=== PATIENT | female | born 1940 | race Caucasian/White ===

== ENCOUNTER → 2017-01-05 | Outpatient (CLI) | payer MEDICARE, OTHER | LOC: MC.RAD 09:34 | DX: Z12.31 Encounter for screening mammogram for malignant neoplasm of breast (principal); Z85.3 Personal history of malignant neoplasm of breast; Z90.13 Acquired absence of bilateral breasts and nipples; Z92.3 Personal history of irradiation ==

== ENCOUNTER 2017-09-28 06:49 | Day surgery (SDC) | payer MEDICARE, OTHER ==
[~2017-09-28] VITALS: Ht 160 cm; Wt 70.8 kg
[2017-09-28] VITALS (13 sets, daily range): BP systolic 120–149; BP diastolic 52–90; PULSE 59–82; TEMP 97.4
[2017-09-28 07:38] LABS: MEAN CELL VOLUME 97 fl (80.0-100.0); MEAN CORPUSCULAR HGB CONC 34 g/dl (33.0-37.0); PLATELET COUNT 197 K/mm3 (130-400); RED BLOOD COUNT 3.57 M/mm3 (4.10-5.30); REDCELL DISTRIBUTION WIDTH-CV 12.7 % (11.5-14.5)
[2017-09-28] MEDS ORDERED: TYLENOL 500MG500 MG PO (07:39)
[2017-09-28] MEDS ORDERED: ASPIRIN 81M81 MG/TA2 PO (07:39)
[2017-09-28] MEDS ORDERED: LIPITOR 80MG80 MG PO (07:40)
[2017-09-28 07:42] LABS: HEMATOCRIT 34.5 % (37.0-47.0); HEMOGLOBIN 11.7 g/dl (12.5-16.0); MEAN CORPUSCULAR HEMOGLOBIN 33 pg (27.0-31.0)
[2017-09-28 07:48] LABS: CREATININE, serum 0.64 mg/dL (0.52-1.25)
[2017-09-28 07:49] LABS: INR 1.1 (0.8-3.0); PROTHROMBIN TIME 12.6 SECONDS (9.7-12.8)
[2017-09-28] MEDS ORDERED: CALCIUM 600MG+D1 TAB PO (07:49)
[2017-09-28] MEDS ORDERED: COREG 25MG25 MG/TAB PO (07:56)
[2017-09-28] MEDS ORDERED: CENTRUM1 TA1 PO (07:59)
[2017-09-28] MEDS ORDERED: BENADRYL25 M2 PO (08:01)
[2017-09-28] MEDS ORDERED: LEVSIN0.125 M1 PO (08:02)
[2017-09-28] MEDS ORDERED: PRINIVIL2.5 MG PO (08:02)
[2017-09-28] MEDS ORDERED: MAG-OX 400400 MG/TAB PO (08:03)
[2017-09-28] MEDS ORDERED: PRILOSEC 20MG20 MG PO (08:03)
[2017-09-28] MEDS ORDERED: OSTEO-BI-FLEX 21 TAB PO (08:06)
[2017-09-28] MEDS ORDERED: VITAMIN C500 MG PO (08:07)
[2017-09-28] MEDS ORDERED: VITAMIN B COMPL1 SGL PO (08:07)
[2017-09-28] MEDS ORDERED: VITAMINE200 PO (08:08)
[2017-09-28] MEDS ORDERED: VITAMIN D31000 I1 PO (08:08)
== END 2017-09-28 15:06 | disposition home or self-care (01) ==
LOC: COL.CAR 06:49
PROVIDERS: Internal Medicine Cardiovascular Disease
DX: I25.10 Atherosclerotic heart disease of native coronary artery without angina pectoris (principal); F90.9 Attention-deficit hyperactivity disorder, unspecified type; I10 Essential (primary) hypertension; I42.9 Cardiomyopathy, unspecified; E78.2 Mixed hyperlipidemia; I34.0 Nonrheumatic mitral (valve) insufficiency; Z90.710 Acquired absence of both cervix and uterus; Z79.82 Long term (current) use of aspirin; Z82.49 Family history of ischemic heart disease and other diseases of the circulatory system; Z95.2 Presence of prosthetic heart valve
CPT/HCPCS: J2250; J3010; Q9967

== ENCOUNTER → 2018-01-06 | Outpatient (CLI) | payer MEDICARE, OTHER ==
[~2018-01-06] MED LIST: ASPIRIN 81M81 MG/TA2 PO; BENADRYL25 M2 PO; CALCIUM 600MG+D1 TAB PO; CENTRUM1 TA1 PO; COREG 25MG25 MG/TAB PO; LEVSIN0.125 M1 PO; LIPITOR 80MG80 MG PO; MAG-OX 400400 MG/TAB PO; OSTEO-BI-FLEX 21 TAB PO; PRILOSEC 20MG20 MG PO; PRINIVIL2.5 MG PO; TYLENOL 500MG500 MG PO; VITAMIN B COMPL1 SGL PO; VITAMIN C500 MG PO; VITAMIN D31000 I1 PO; VITAMINE200 PO
== END ==
LOC: MC.RAD 09:15
DX: Z12.31 Encounter for screening mammogram for malignant neoplasm of breast (principal); Z85.3 Personal history of malignant neoplasm of breast; Z98.890 Other specified postprocedural states; Z92.3 Personal history of irradiation

== ENCOUNTER → 2019-01-08 | Outpatient (CLI) | payer MEDICARE, OTHER ==
[~2019-01-08] MED LIST changes: +COZAAR 25MG25 MG/TAB PO; +DITROPAN XL10 MG PO; +PERIDEX (CHLOR480 ML MM
== END ==
LOC: MC.RAD 09:28
DX: Z12.31 Encounter for screening mammogram for malignant neoplasm of breast (principal); Z85.3 Personal history of malignant neoplasm of breast; Z92.3 Personal history of irradiation; Z98.890 Other specified postprocedural states

== ENCOUNTER 2019-04-25 15:52 | Outpatient (RCR) | payer MEDICARE, OTHER | END 2019-04-26 | disposition home or self-care (01) | LOC: COL.CR | DX: Z48.812 Encounter for surgical aftercare following surgery on the circulatory system (principal); Z95.2 Presence of prosthetic heart valve ==

== ENCOUNTER 2019-05-09 12:19 | Outpatient (RCR) | payer MEDICARE, OTHER | END 2019-05-09 12:45 | disposition home or self-care (01) | LOC: COL.CR 12:19 | DX: Z48.812 Encounter for surgical aftercare following surgery on the circulatory system (principal); Z95.2 Presence of prosthetic heart valve; I25.10 Atherosclerotic heart disease of native coronary artery without angina pectoris; I50.23 Acute on chronic systolic (congestive) heart failure ==

== ENCOUNTER 2019-07-25 08:31 | Observation (INO) | payer MEDICARE, OTHER ==
[2019-07-25] VITALS (12 sets, daily range): BP systolic 94–171; BP diastolic 50–109; PULSE 60–120; TEMP 97.5–98.6
[~2019-07-25] VITALS: Ht 160.1 cm; Wt 67.6 kg
[2019-07-25 09:04] LABS: HEMOGLOBIN 11.7 g/dl (12.5-16.0); MEAN CELL VOLUME 100 fl (80.0-100.0); MEAN CORPUSCULAR HEMOGLOBIN 33 pg (27.0-31.0); MEAN CORPUSCULAR HGB CONC 33 g/dl (33.0-37.0); MEAN PLATELET VOLUME 10.4 fl (7.4-10.4); PLATELET COUNT 148 K/mm3 (130-400); RED BLOOD COUNT 3.58 M/mm3 (4.10-5.30); REDCELL DISTRIBUTION WIDTH-CV 13.2 % (11.5-14.5)
[2019-07-25 09:07] LABS: HEMATOCRIT 35.8 % (37.0-47.0)
[2019-07-25 09:14] LABS: CALCIUM 9.2 mg/dL (8.4-10.2); CREATININE, serum 0.5 (0.52-1.25); POTASSIUM 4.1 mmol/L (3.4-5.0)
[2019-07-25 09:15] LABS: INR 1.1 (0.8-3.0); PROTHROMBIN TIME 12.5 SECONDS (9.7-12.8)
--- NOTE | 2019-07-25 10:22 | NUR ---
SEE MERGE DOCUMENTATION FOR MEDICATION ADMINISTRATION TIMES AND INTRA/POST PROCEDURE SEDATION ASSESSMENTS. SHARED DECISION MAKING AND NCD SCREENING TOOL COMPLETED, SIGNED, AND ON CHART.
--- NOTE | 2019-07-25 11:30 | NUR ---
Pt arrived to floor awake and alert at this time. States she is in no pain and is just hungry. incision site looks good no drainage, redness or edema at this time. Pt sipped on water upon arrival, no issues swallowing, will have food tray delivered for lunch. Family is currently at the bedside. No further needs were expressed at this time. Calll light is in place.
--- NOTE | 2019-07-25 16:43 | NUR ---
in radiology called to inform me that on her xray there was a visible small Left apical punemothorax, less than 5%. I called Dr. Cruz to inform him and he said not to worry about it she has another xray in the am.
--- NOTE | 2019-07-25 19:05 | NUR ---
Received report from Amira. Seen patient awake, lying on bed. With right arm sling. Left upper chest incision covered with gauze and tape. Patient denies any pain. With INT on left forearm.
[2019-07-26] VITALS (11 sets, daily range): BP systolic 103–141; BP diastolic 46–79; PULSE 68–93; TEMP 97.9–98.6
--- NOTE | 2019-07-26 05:47 | NUR ---
Patient had an uneventful night. Complained of pain this morning with pain score of 7/10. Patient was able to ambulate to restroom with assistance and using her cane. Will endorse to day shift nurse.
--- NOTE | 2019-07-26 08:08 | NUR ---
SEE MERGE DOCUMENTATION FOR MEDICATION ADMINISTRATION TIMES AND INTRA/POST PROCEDURE SEDATION ASSESSMENTS.
--- NOTE | 2019-07-26 16:45 | NUR ---
RACHEL met with the patient and the patient's daughter, Lexy to complete initial intake. The patient lives in [place] with her and extended family. The patient has a cane a walker that she uses as needed and reports independence with ADLs. The patient's PCP is Dr. Sands and the patient receives medications from [facility]. The patient does not have advanced directives in the EMR but reports they are completed. The patient's son-in-law, Catracho Murillo is a civil lawyer and has the paperwork. The patient plans to return home at discharge. There are no additional needs at this time.
--- NOTE | 2019-07-26 18:45 | NUR ---
Received report from Geena. Seen patient awake, sitting on bed. She's taking her dinner. Patient denies any pain. With left arm sling and INT on left AC. On O2 at 2lpm via NC.
[2019-07-27] VITALS (8 sets, daily range): BP systolic 89–127; BP diastolic 50–67; PULSE 63–93; TEMP 97.9–99.7
[2019-07-27 06:20] LABS: BASO % 0.6 % (0.0-2.0); EOS # 0.1 (0.0-0.7); GRAN # 4.1 (1.4-6.5); GRAN % 57.7 % (42.2-75.2); HEMOGLOBIN 11.4 g/dl (12.5-16.0); LYMPH # 1.9 (1.2-3.4); LYMPH % 26.8 % (20.0-51.0); MEAN CELL VOLUME 99 fl (80.0-100.0); MEAN CORPUSCULAR HEMOGLOBIN 33 pg (27.0-31.0); MEAN CORPUSCULAR HGB CONC 33 g/dl (33.0-37.0); MEAN PLATELET VOLUME 11.5 fl (7.4-10.4); MONO # 0.9 (0.1-0.6); MONO % 12.8 % (1.7-9.3); PLATELET COUNT 94 K/mm3 (130-400); RED BLOOD COUNT 3.45 M/mm3 (4.10-5.30); REDCELL DISTRIBUTION WIDTH-CV 13.2 % (11.5-14.5)
[2019-07-27 06:22] LABS: HEMATOCRIT 34.3 % (37.0-47.0)
[2019-07-27 06:25] LABS: CALCIUM 9.2 mg/dL (8.4-10.2); CREATININE, serum 0.5 (0.52-1.25); POTASSIUM 3.8 mmol/L (3.4-5.0)
--- NOTE | 2019-07-27 06:30 | NUR ---
Patient had an uneventful night. Complained of pain last night which was relieved with Tylenol. Will endorse to day shift nurse.
--- NOTE | 2019-07-27 10:03 | NUR ---
Initial visit; Patient thanked Bituminous Distributor Operator for looking in on her and offering Spiritual Care.
--- NOTE | 2019-07-27 19:27 | NUR ---
1814: SEE FLOW SHEET FOR DOCUMENTED VITAL SIGNS WITH HYPOTENSIONS. PATIENT SITTING UP IN BED VISITING WITH FAMILY. DENIES BEING DIZZY OR LIGHTED HEADED. A/O X 4. NO CHEST PAINOR SHORTNESS OF BREATHE. CALL TO CRAFT DEMONSTRATOR HOSPITALIST. HE IS ONCALL FOR CARDIOLOGY @ THIS TIME. REVIEWED PATIENT WITH PROVIDER. ORDERS RECEIVED FOR 250ML NS BOLOUS X 1. CALL WITH ANY CHEST PAIN, SHORTNESS OF BREATHE OR IF HYPOTENSION CONTINUES AFTER FLUID BOLUS. REPORT GIVEN TO SUPERVISOR HAND SILVERING MARY HENDERSON. DISCUSSED VITAL SIGNS AND PROVIDERS ORDERS. SEE EMAR FOR FLUID BOLUS INITIATION AND COREG NOT ADMINISTERED ORDERED BY HOSPITALIST. PATIENT NOTIFIED OF PLAN OF CARE AND REASONS. AGREES WITH PLAN OF CARE AND HAS NO QUESTIONS OR CONCERNS AFTER DISCUSSION.
--- NOTE | 2019-07-27 19:43 | NUR ---
SEE FLOW SHEET FOR BP OBTAINED POST COMPLETION OF 250ML NS BOLUS. PATIENT CONTINUES A/O X4 WITH NO COMPLAINTS OF BEING DIZZY/LIGHT HEADED. NO SOB, CHEST PAIN. CALL TO HOSPITALIST. COMMUNICATION TO OBTAIN FVS Q4H ROUTINE AND NOTIFY WTH ANY NEW COMPLAINTS.
[2019-07-28 00:21] VITALS: BP 107/45; PULSE 61; TEMP 97.9
[2019-07-28 04:46] VITALS: BP 108/58; PULSE 76; TEMP 97.8
[2019-07-28 07:45] VITALS: BP 110/53; PULSE 78; TEMP 97.7
[2019-07-28] MEDS ORDERED: CEPHALEXIN500 M1 PO (11:46)
[2019-07-28 11:55] VITALS: BP 101/55; PULSE 86; TEMP 98.3
--- NOTE | 2019-07-28 15:27 | NUR ---
PATIENT DC TO HOME ACCOMPANIED BY GRANDDAUGHTER VIA PRIVATE VEHICLE @ 1400. PRINTED DC INSTRUCTIONS REVIEWED WITH PATIENT. ALL QUESTION ANSWERED AFTER REVIEW. LEFT UNIT IN WC ACCOMPANIED BY THIS NURSE.
== END 2019-07-28 14:00 | disposition home or self-care (01) ==
LOC: COL.CAR 08:31 → MEDICAL 16:04 → COL.CAR 07-26 13:34 → MEDICAL 07-26 13:34
PROVIDERS: Nurse Practitioner; ADMIT Internal Medicine Cardiovascular Disease
DX: I42.0 Dilated cardiomyopathy (principal); J93.83 Other pneumothorax; I10 Essential (primary) hypertension; I25.10 Atherosclerotic heart disease of native coronary artery without angina pectoris; F90.9 Attention-deficit hyperactivity disorder, unspecified type; K56.609 Unspecified intestinal obstruction, unspecified as to partial versus complete obstruction; I34.0 Nonrheumatic mitral (valve) insufficiency; I27.20 Pulmonary hypertension, unspecified; E78.2 Mixed hyperlipidemia; Z90.710 Acquired absence of both cervix and uterus; Z95.2 Presence of prosthetic heart valve; Z79.82 Long term (current) use of aspirin; Z91.048 Other nonmedicinal substance allergy status; Z91.040 Latex allergy status; Z88.1 Allergy status to other antibiotic agents
CPT/HCPCS: OP; C1769; C1777; C1882; C1894; C1898; C1900; G0378; J0690; J2250; J3010; J7030; J7050; Q9967

== ENCOUNTER → 2020-01-11 | Outpatient (CLI) | payer MEDICARE, OTHER ==
[~2020-01-11] MED LIST changes: +CEPHALEXIN500 M1 PO
== END ==
LOC: MC.RAD 10:23
DX: Z12.31 Encounter for screening mammogram for malignant neoplasm of breast (principal); Z98.890 Other specified postprocedural states; Z98.82 Breast implant status; Z85.3 Personal history of malignant neoplasm of breast; Z92.3 Personal history of irradiation; Z95.0 Presence of cardiac pacemaker

== ENCOUNTER → 2021-01-14 | Outpatient (CLI) | payer MEDICARE, OTHER | LOC: MC.RAD 14:14 | DX: Z12.31 Encounter for screening mammogram for malignant neoplasm of breast (principal); Z98.890 Other specified postprocedural states ==

== ENCOUNTER 2021-07-02 16:55 | Inpatient (IN) | payer MEDICARE, OTHER ==
[2021-07-06 08:44] VITALS: BP 110/60; PULSE 91; TEMP 99.8
[2021-07-06 09:51] LABS: BASO # 0.1 K/mm3 (0.0-0.2); BASO % 1.2 % (0.0-2.0); EOS # 0.1 K/mm3 (0.0-0.7); EOS % 2.1 % (0.0-4.0); GRAN # 3.1 K/mm3 (1.4-6.5); GRAN % 60.2 % (42.2-75.2); HEMOGLOBIN 11.7 g/dl (12.5-16.0); LYMPH # 1.4 K/mm3 (1.2-3.4); LYMPH % 27.5 % (20.0-51.0); MEAN CELL VOLUME 98 fl (80.0-100.0); MEAN CORPUSCULAR HEMOGLOBIN 32 pg (27-31); MEAN CORPUSCULAR HGB CONC 33 g/dl (33.0-37.0); MEAN PLATELET VOLUME 10.7 fl (7.4-10.4); MONO # 0.5 K/mm3 (0.1-0.6); MONO % 8.8 % (1.7-9.3); PLATELET COUNT 157 K/mm3 (130-400); RED BLOOD COUNT 3.64 M/mm3 (4.10-5.30); REDCELL DISTRIBUTION WIDTH-CV 13.2 % (11.5-14.5)
[2021-07-06 09:55] LABS: HEMATOCRIT 35.6 % (37.0-47.0)
[2021-07-06 10:07] LABS: ALBUMIN 3.7 gm/dL (3.4-4.8); BILIRUBIN,TOTAL 0.7 mg/dL (0.2-1.2); CREATININE, serum 0.72 mg/dL (0.57-1.11); MAGNESIUM 1.6 mg/dL (1.6-2.6); POTASSIUM 3.7 mmol/L (3.5-4.5); TOTAL PROTEIN 6.7 gm/dL (6.2-8.1)
[2021-07-06 10:13] LABS: INR 1.8 (0.8-3.0); PROTHROMBIN TIME 19.7 SECONDS (9.7-12.8)
[2021-07-06] MEDS ORDERED: ELIQUIS 5MG PO (10:22)
[2021-07-06 11:51] VITALS: BP 117/57; PULSE 79; TEMP 98.4
[2021-07-06 17:28] VITALS: BP 128/67; PULSE 64; TEMP 98.1
--- NOTE | 2021-07-06 18:44 | NUR ---
PT PLEASANT, AOX4, DENIES PAIN, UNEVENTFUL SHIFT, NO C/O PAIN, AMBULATORY WITH PT OWN WALKER IN ROOM, TELE ON PT, PT CALL LIGHT WITHIN REACH, NO OTHER NEEDS
[2021-07-06 21:14] VITALS: BP 119/50; PULSE 64; TEMP 97.7
[2021-07-07] VITALS (7 sets, daily range): BP systolic 112–134; BP diastolic 61–74; PULSE 7–81; TEMP 97.8–99
[2021-07-07 06:36] LABS: BASO # 0.1 K/mm3 (0.0-0.2); BASO % 1.1 % (0.0-2.0); EOS # 0.1 K/mm3 (0.0-0.7); EOS % 2.4 % (0.0-4.0); GRAN # 2.2 K/mm3 (1.4-6.5); GRAN % 40.9 % (42.2-75.2); HEMOGLOBIN 11.6 g/dl (12.5-16.0); LYMPH # 2.4 K/mm3 (1.2-3.4); LYMPH % 44.9 % (20.0-51.0); MEAN CELL VOLUME 98 fl (80.0-100.0); MEAN CORPUSCULAR HEMOGLOBIN 33 pg (27-31); MEAN CORPUSCULAR HGB CONC 33 g/dl (33.0-37.0); MEAN PLATELET VOLUME 11.3 fl (7.4-10.4); MONO # 0.6 K/mm3 (0.1-0.6); MONO % 10.5 % (1.7-9.3); PLATELET COUNT 154 K/mm3 (130-400); RED BLOOD COUNT 3.56 M/mm3 (4.10-5.30); REDCELL DISTRIBUTION WIDTH-CV 13.2 % (11.5-14.5)
[2021-07-07 06:47] LABS: HEMATOCRIT 34.7 % (37.0-47.0)
[2021-07-07 06:56] LABS: CALCIUM 9.1 mg/dL (8.4-10.2); CREATININE, serum 0.66 mg/dL (0.57-1.11); MAGNESIUM 1.6 mg/dL (1.6-2.6); POTASSIUM 3.5 mmol/L (3.5-4.5)
[2021-07-07 07:06] LABS: INR 1.8 (0.8-3.0); PROTHROMBIN TIME 19.7 SECONDS (9.7-12.8)
--- NOTE | 2021-07-07 09:41 | NUR ---
Initial visit; Patient thanked Heat And Frost Insulator Helper for looking in on her and offering comfort, encouragement and prayer.
--- NOTE | 2021-07-07 10:00 | NUR ---
PT PLEASANT AXO4, MEDICATIONS GIVEN, ASSSESSMENT PERFORMED, MEALS ORDERED BY PT DAUGHTER, NO OTHER NEEDS
--- NOTE | 2021-07-07 10:18 | NUR ---
demolition worker met with patient to discuss discharge plan. Patient reports that she lives at home with her daughter Frnaces ([phone]), son in law, and three grandchildren. Patient is fully independent with her ADL's and utilizes both a cane and a walker to assist with ambulation. Patient reports to no oxygen needs at home. PCP is Dr. Maguire and she utilizes [facility] for medications. Patient reports that she does have a DPOA-HC established listing her son in law Tad (Frances's )
--- NOTE | 2021-07-07 17:19 | NUR ---
UNEVENTFUL SHIFT, PT INDEPENDENT IN ROOM, AOX4, DENIES PAIN, NO OTHER NEEDS
--- NOTE | 2021-07-07 23:31 | NUR ---
Patient assessed around 1999. Alert and oriented, and able to make needs known. Denies pain and discomfort. Peripheral INT to left AC. Denies SOB and dyspnea. LS CTA. HRR. Telemetry in place. Continues on Sotalol per orders. BSAx4. Abdomen soft and non-tender. Voices no questions, needs, or concerns at this time. In bed with call light within reach.
[2021-07-08 00:13] VITALS: BP 106/84; PULSE 67; TEMP 97.3
[2021-07-08 04:16] VITALS: BP 134/61; PULSE 62; TEMP 97.2
--- NOTE | 2021-07-08 05:35 | NUR ---
Patient has denied having pain and discomfort this shift. Voices no questions, needs, or concerns at this time. In bed with call light within reach.
[2021-07-08 06:36] LABS: BASO # 0.1 K/mm3 (0.0-0.2); BASO % 1.4 % (0.0-2.0); EOS # 0.1 K/mm3 (0.0-0.7); EOS % 2.8 % (0.0-4.0); GRAN # 1.7 K/mm3 (1.4-6.5); GRAN % 33.6 % (42.2-75.2); HEMOGLOBIN 11.4 g/dl (12.5-16.0); LYMPH # 2.5 K/mm3 (1.2-3.4); LYMPH % 50.2 % (20.0-51.0); MEAN CELL VOLUME 98 fl (80.0-100.0); MEAN CORPUSCULAR HEMOGLOBIN 33 pg (27-31); MEAN CORPUSCULAR HGB CONC 34 g/dl (33.0-37.0); MEAN PLATELET VOLUME 11.5 fl (7.4-10.4); MONO # 0.6 K/mm3 (0.1-0.6); MONO % 11.8 % (1.7-9.3); PLATELET COUNT 156 K/mm3 (130-400); RED BLOOD COUNT 3.48 M/mm3 (4.10-5.30); REDCELL DISTRIBUTION WIDTH-CV 13.1 % (11.5-14.5)
[2021-07-08 06:47] LABS: INR 1.6 (0.8-3.0); PROTHROMBIN TIME 18.3 SECONDS (9.7-12.8)
[2021-07-08 06:51] LABS: CALCIUM 8.9 mg/dL (8.4-10.2); CREATININE, serum 0.69 mg/dL (0.57-1.11); MAGNESIUM 1.7 mg/dL (1.6-2.6); POTASSIUM 3.5 mmol/L (3.5-4.5)
[2021-07-08 08:50] VITALS: BP 126/65; PULSE 64; TEMP 98
[2021-07-08] MEDS ORDERED: BETAPACE 80MG80 MG PO (09:43)
--- NOTE | 2021-07-08 11:27 | NUR ---
PT MET CRITERIA FOR DISCHARGE, VSS. IV REMOVED WITH NO COMPLICATIONS, CATHETER INTACT. DISCHARGE INSTRUCTIONS REVIEWED, PT VERBALIZED UNDERSTANDING. PT AWARE OF F/U APPT AND OF PRESCRIPTIONS TO PARACHUTE ACCESSORIES ATTACHER. PT DC TO HOME VIA AMBULATORY ACCOMPANIED BY PRESSER AND SHAPER KNITTED GOODS.
== END 2021-07-08 11:33 | disposition home or self-care (01) | DRG 310 ==
LOC: MEDICAL 07-06 08:10 → INPTSU 07-06 08:10 → MEDICAL 07-06 08:14
PROVIDERS: ADMIT Internal Medicine Cardiovascular Disease
DX: I48.0 Paroxysmal atrial fibrillation (principal); I42.9 Cardiomyopathy, unspecified; I10 Essential (primary) hypertension; E78.5 Hyperlipidemia, unspecified; I34.0 Nonrheumatic mitral (valve) insufficiency; I27.20 Pulmonary hypertension, unspecified; Z79.82 Long term (current) use of aspirin; Z23 Encounter for immunization

== ENCOUNTER → 2021-11-26 | Outpatient (CLI) | payer MEDICARE, OTHER ==
[~2021-11-26] MED LIST changes: +BETAPACE 80MG80 MG PO; +ELIQUIS 5MG PO
== END ==
LOC: COL.RAD 07:50
DX: M17.11 Unilateral primary osteoarthritis, right knee (principal); M11.261 Other chondrocalcinosis, right knee

== ENCOUNTER → 2021-12-02 | Outpatient (CLI) | payer MEDICARE, OTHER | LOC: ZCOL.LAB 11:47 | DX: M81.0 Age-related osteoporosis without current pathological fracture (principal) ==

== ENCOUNTER → 2022-01-15 | Outpatient (CLI) | payer MEDICARE, OTHER | LOC: MC.RAD 12:57 | DX: Z12.31 Encounter for screening mammogram for malignant neoplasm of breast (principal); Z98.890 Other specified postprocedural states ==

== ENCOUNTER → 2022-09-29 | Outpatient (REF) | payer MEDICARE, OTHER ==
[2022-09-29 16:09] LABS: CALCIUM 9.3 mg/dL (8.4-10.2); CREATININE, serum 0.73 mg/dL (0.57-1.11); POTASSIUM 4.5 mmol/L (3.5-4.5)
== END ==
LOC: ZCOL.LAB 13:29
PROVIDERS: Internal Medicine
DX: I10 Essential (primary) hypertension (principal)

== ENCOUNTER 2024-01-28 18:18 | Emergency (ER) | payer MEDICARE, OTHER ==
[~2024-01-28] VITALS: Ht 160 cm; Wt 72.7 kg
[~2024-01-28 18:18] MED LIST changes: +ALDACTONE 25MG25 M1 PO; +CIPRO 250MG TA250 MG PO; +LEXAPRO 5MG5 MG PO; +LIDEX GEL 15GM; +MERIBIN5 MG PO; +MYLANTA 150 ML150 M1 PO; +PROTONIX 40MG T40 MG PO; +ZOFRAN 4MG T4 MG/TAB PO
[2024-01-28 18:32] VITALS: TEMP 97.4
[2024-01-28 20:24] VITALS: BP 149/83; PULSE 77
== END 2024-01-28 20:24 | disposition home or self-care (01) ==
LOC: COL.ER 18:18
DX: S93.401A Sprain of unspecified ligament of right ankle, initial encounter (principal); W18.40XA Slipping, tripping and stumbling without falling, unspecified, initial encounter; Y92.002 Bathroom of unspecified non-institutional (private) residence as the place of occurrence of the external cause